=== PATIENT | male | born 1960 | race African-American/Black ===

== ENCOUNTER 2022-09-05 12:42 | Emergency (ER) | payer MEDICAID, OTHER ==
[~2022-09-05] VITALS: Ht 185.4 cm; Wt 100.0 kg
[2022-09-05 14:31] LABS: CHLORIDE 106 mEq/L (98-107)
[2022-09-05 14:43] LABS: HEMATOCRIT. 30.9 % (42.0-52.0); HEMOGLOBIN. 10.2 g/dL (14.0-18.0); MEAN CORPUSCULAR HEMOGLOBIN 26.8 pg (28.0-32.0); RED BLOOD CELL COUNT 3.81 mill/uL (4.7-6.1); RED CELL DISTRIBUTION WIDTH 16.6 % (11.6-14.6)
[2022-09-05 16:59] LABS: PLATELET ESTIMATE NORMAL
[2022-09-05] MEDS ORDERED: ACETAMINOPHEN 325MG TABLET PO ONE (22:30)
[2022-09-06 01:39] VITALS: BP 156/72
== END 2022-09-06 01:30 | disposition short-term general hospital (02) ==
LOC: ER 12:42 → CANBEDREQ 09-06 10:27
DX: R55 Syncope and collapse (principal); I10 Essential (primary) hypertension; E11.9 Type 2 diabetes mellitus without complications
CPT/HCPCS: 36415; 71045; 80053; 83880; 84484; 85025; 93005; 99285

== ENCOUNTER 2025-08-21 13:14 | Inpatient (IN) | payer OTHER ==
[~2025-08-21] VITALS: Ht 185.4 cm; Wt 86.2 kg
[2025-08-21 13:41] VITALS: O2SAT 100
[2025-08-21 15:49] LABS: BASOPHILS % 0.8 % (0.0-2.0); EOSINOPHILS % 0.9 % (0.0-5.0); HEMATOCRIT. 30.1 % (42.0-52.0); HEMOGLOBIN. 9.8 g/dL (14.0-18.0); LYMPHOCYTES % 34.1 % (20.0-50.0); MEAN PLATELET VOLUME 8.9 fl (7.4-10.4); MONOCYTES % 6.3 % (2.0-8.0); NEUTROPHILS % 57.9 % (40.0-76.0); PLATELET 376 x1000/uL (130-400); RED BLOOD CELL COUNT 3.69 mill/uL (4.7-6.1); RED CELL DISTRIBUTION WIDTH 16.0 % (11.6-14.6)
[2025-08-21 15:58] LABS: INR 1.2
[2025-08-21 16:03] LABS: CREATININE 1.1 mg/dL (0.6-1.3); UREA NITROGEN BLOOD 8 mg/dL (9-23)
[2025-08-21 16:05] LABS: ASPARTATE AMINOTRANSFERASE 25 IU/L (<34); BILIRUBIN DIRECT 0.4 mg/dL (<=3.0); BILIRUBIN TOTAL 0.9 mg/dL (0.1-1.0); PROTEIN TOTAL 8.3 g/dL (6.0-8.3); TROPONIN I HIGH SENSITIVITY 87 ng/L (3.0-53)
[2025-08-21] MEDS: ASPIRIN 81MG TABLET PO ONE (16:30)
[2025-08-21 18:30] VITALS: BP 113/72; PULSE 74; RESP 16; TEMP 36.696
[2025-08-21 20:00] VITALS: BP 114/80; PULSE 75; RESP 20; TEMP 36.9; O2SAT 97
[2025-08-21] MEDS: HYDROCORTISONE SOD SUCCINATE 100 MG/2 ML VIAL IV ONE (21:11)
[2025-08-21] MEDS: MORPHINE SULFATE 4 MG/ML INJ (FOR IV/IM USE) IV ONE (21:12)
[2025-08-21] MEDS: ONDANSETRON HCL 4MG/2ML INJ IV ONE (21:12)
[2025-08-22] VITALS (7 sets, daily range): BP systolic 102–153; BP diastolic 66–83; PULSE 60–87; RESP 17–20; TEMP 35.7–37.1; O2SAT 98–100
[2025-08-22] MEDS ORDERED: NALOXONE HCL 0.4MG/ML VIAL IV PRN (02:00)
[2025-08-22] MEDS: DIPHENHYDRAMINE 25MG CAPSULE PO PRN (05:54)
[2025-08-22 05:58] LABS: CLARITY URINE CLEAR (CLEAR); COLOR URINE YELLOW (YELLOW); GLUCOSE URINE NEGATIVE (NEGATIVE); KETONES URINE NEGATIVE (NEGATIVE); LEUKOCYTE ESTERASE URINE 1+ (NEGATIVE); NITRITE URINE POSITIVE (NEGATIVE); OCCULT BLOOD URINE TRACE (NEGATIVE); PH URINE 6.0 (4.5-8.0); PROTEIN URINE NEGATIVE (NEGATIVE); SPECIFIC GRAVITY URINE 1.010 (1.005-1.030); UROBILINOGEN URINE 0.2 E.U./dL (0.2-1.0)
[2025-08-22 06:07] LABS: *AMPHETAMINES SCREEN URINE NEGATIVE (NEGATIVE); *BARBITURATES SCREEN URINE NEGATIVE (NEGATIVE); *BENZODIAZEPINES SCREEN URINE NEGATIVE (NEGATIVE); *COCAINE SCREEN URINE NEGATIVE (NEGATIVE); CANNABINOID URINE SCREEN PRESUMPTIVE POSITIVE (NEGATIVE); ECSTASY MDMA SCREEN URINE NEGATIVE (NEGATIVE); METHADONE URINE SCREEN NEGATIVE (NEGATIVE); OPIATES URINE SCREEN PRESUMPTIVE POSITIVE (NEGATIVE); PHENCYCLIDINE URINE SCREEN NEGATIVE (NEGATIVE)
[2025-08-22 07:34] LABS: BACTERIA URINE 1+; SQUAMOUS EPITHELIAL CELL URINE 1+ /lpf (RARE/1+)
[2025-08-22] MEDS ORDERED: ONDANSETRON HCL 4MG/2ML INJ IV PRN (09:00)
[2025-08-22] MEDS ORDERED: IPRATROPIUM/ALBUTEROL 0.5-3(2.5)MG/3ML NEB HHN PRN (09:00)
[2025-08-22] MEDS ORDERED: CLONIDINE 0.1MG TABLET PO PRN (09:00)
[2025-08-22] MEDS: HYDROCODONE/ACETAMINOPHEN 5/325MG TABLET PO PRN (11:25)
[2025-08-22] MEDS: LORAZEPAM 2MG/ML UD SYRINGE IV NR (12:59)
[2025-08-22] MEDS ORDERED: GADOTERATE MEGLUMINE 5 MMOL/10 ML VIAL IV ONE (13:20)
[2025-08-22] MEDS: CEFTRIAXONE 1GM/50ML 50 ML IV SCH (18:04)
[2025-08-23] VITALS: BP 149/80; PULSE 70; RESP 18; TEMP 36.9; O2SAT 98
[2025-08-23 04:00] VITALS: BP 106/65; PULSE 98; RESP 18; TEMP 36.7; O2SAT 98
[2025-08-23 07:51] LABS: BASOPHILS % 0.9 % (0.0-2.0); EOSINOPHILS % 5.0 % (0.0-5.0); HEMATOCRIT. 27.6 % (42.0-52.0); HEMOGLOBIN. 9.2 g/dL (14.0-18.0); LYMPHOCYTES % 53.8 % (20.0-50.0); MEAN PLATELET VOLUME 9.1 fl (7.4-10.4); MONOCYTES % 9.2 % (2.0-8.0); NEUTROPHILS % 31.1 % (40.0-76.0); PLATELET 307 x1000/uL (130-400); RED BLOOD CELL COUNT 3.46 mill/uL (4.7-6.1); RED CELL DISTRIBUTION WIDTH 15.5 % (11.6-14.6)
[2025-08-23 08:00] VITALS: BP 127/67; PULSE 64; RESP 20; TEMP 36.4; O2SAT 100
[2025-08-23 08:02] LABS: CREATININE 0.7 mg/dL (0.6-1.3)
[2025-08-23 08:03] LABS: UREA NITROGEN BLOOD 14 mg/dL (9-23)
[2025-08-23 12:30] VITALS: BP 138/76; PULSE 68; RESP 20; TEMP 36.6; O2SAT 100
[2025-08-23 16:00] VITALS: BP 107/71; PULSE 57; RESP 20; TEMP 36.6; O2SAT 100
[2025-08-23 20:00] VITALS: BP 134/69; PULSE 62; RESP 18; TEMP 36.6; O2SAT 99
[2025-08-24] VITALS: BP 108/63; PULSE 81; RESP 20; TEMP 36.4; O2SAT 99
[2025-08-24 08:30] VITALS: BP 111/72; PULSE 69; RESP 16; TEMP 36.6; O2SAT 99
[2025-08-24 12:00] VITALS: RESP 18
[2025-08-24] MEDS ORDERED: SULF1TAB48 MT (12:51)
[2025-08-24 16:55] VITALS: BP 108/71; PULSE 75; RESP 16; TEMP 98.1
== END 2025-08-24 17:30 | disposition home or self-care (01) | DRG 463 ==
LOC: ER 13:14 → EDBEDREQTM 16:55 → EDBEDREQ 16:55 → 8WST 17:49 → 8EST 08-23 21:52
PROVIDERS: ADMIT Internal Medicine; ATTEND Internal Medicine
DX: N39.0 Urinary tract infection, site not specified (principal); D35.2 Benign neoplasm of pituitary gland; I10 Essential (primary) hypertension; E11.9 Type 2 diabetes mellitus without complications; R79.89 Other specified abnormal findings of blood chemistry
CPT/HCPCS: 36415; 70553; 71045; 80048; 80076; 80305; 80320; 81003; 82140; 82533; 83880; 84295; 84443; 84484; 85025; 93005; 97166; 99291; A9577; J0696; J1720; J2060; J2270; J2405; Q0163; G0480